=== PATIENT | male | born 1935 | race Caucasian/White ===

== ENCOUNTER 2022-05-24 20:51 | Inpatient (IN) | payer BC, OTHER ==
[2022-05-24] MEDS ORDERED: PIPERACILLIN/TAZOB 3.375 GM 3.375 GM in DEXTROSE 5%-WATER - 50 ML IVPB ONE (21:31)
[2022-05-24] MEDS ORDERED: VANCOMYCIN 1 GM in D5W (PRE-DOCKED) 1,000 MG/250 ML IVPB ONE (21:31)
[2022-05-24 22:33] LABS: BASO % 0.6 % (0-2.0); EOS % 0.5 % (0-4.5); HEMATOCRIT 35.6 % (35.4-49); HEMOGLOBIN 11.5 GM/dL (11.7-16.9); LYMPH % 42.5 % (8-40); MCH 27.9 pg (25.7-33.7); MCHC 32.4 g/dl (32.0-35.9); MEAN CELL VOLUME 86.1 fl (80-96); MEAN PLT VOLUME 7.8 fl (7.5-11.1); NEUT % 46.4 % (42.8-82.8); PLATELET COUNT 343 10^3/uL (134-434); RBC 4.14 M/mm3 (4.00-5.60); RDW 22.8 % (11.9-15.9); WHITE BLOOD COUNT 6.5 K/mm3 (4.0-10.0)
[2022-05-24] MEDS ORDERED: PIPERACILLIN/TAZOB 3.375 GM 3.375 GM/50 ML BAG IVPB ONE (22:40)
[2022-05-24] MEDS ORDERED: VANCOMYCIN/WATER FOR INJ (PEG) 1,000 MG/200 ML BAG IVPB ONE (22:40)
[2022-05-24 22:59] LABS: ALBUMIN 2.9 g/dl (3.4-5.0); BLOOD UREA NITROGEN 24.6 mg/dL (7-18); CALCIUM 8.9 mg/dL (8.5-10.1)
[2022-05-24 23:02] LABS: CREATININE 0.8 mg/dL (0.55-1.3)
[2022-05-24 23:04] LABS: BILIRUBIN,TOTAL 0.2 mg/dL (0.2-1); TOT PROT 6.3 g/dl (6.4-8.2)
[2022-05-24 23:12] LABS: ANISOCYTOSIS 2+; MACROCYTOSIS 0; OVALOCYTE 1+; TARGET CELLS 1+
[2022-05-24] MEDS ORDERED: MIDAZOLAM HCL 2 MG/2 ML SINGLE DOSE VIAL IVPUSH ONE (23:53)
[2022-05-24] MEDS ORDERED: MIDAZOLAM HCL 2 MG/2 ML SINGLE DOSE VIAL ONE (23:56)
[2022-05-25] MEDS ORDERED: ALBUTEROL SO4 HFA INHALER IH PRN (04:57)
[2022-05-25 08:56] LABS: BASO % 0.3 % (0-2.0); HEMATOCRIT 37.6 % (35.4-49); HEMOGLOBIN 11.9 GM/dL (11.7-16.9); LYMPH % 39.8 % (8-40); MCH 27.3 pg (25.7-33.7); MCHC 31.6 g/dl (32.0-35.9); MEAN CELL VOLUME 86.3 fl (80-96); MEAN PLT VOLUME 8.5 fl (7.5-11.1); MONO % 9.5 % (3.8-10.2); NEUT % 49.4 % (42.8-82.8); PLATELET COUNT 374 10^3/uL (134-434); RBC 4.36 M/mm3 (4.00-5.60); RDW 22.5 % (11.9-15.9); WHITE BLOOD COUNT 7.8 K/mm3 (4.0-10.0)
[2022-05-25 09:23] LABS: CALCIUM 9.1 mg/dL (8.5-10.1)
[2022-05-25 09:24] LABS: BLOOD UREA NITROGEN 19.6 mg/dL (7-18)
[2022-05-25 09:27] LABS: CREATININE 0.6 mg/dL (0.55-1.3)
[2022-05-25] MEDS: amLODIPine BESYLATE 5 MG TABLET (FP) PO SCH (09:42)
[2022-05-25] MEDS: ASCORBIC ACID 500 MG TABLET (FP) PO SCH ×2 (09:42→21:20)
[2022-05-25] MEDS: FERROUS SO4 325 MG TABLET (FP) PO SCH (09:42)
[2022-05-25 18:56] LABS: URINE APPEARANCE CLOUDY; URINE BILIRUBIN NEGATIVE (NEGATIVE); URINE COLOR YELLOW; URINE GLUCOSE (UA) NEGATIVE (NEGATIVE); URINE KETONE NEGATIVE (NEGATIVE); URINE LEUK ESTERASE NEGATIVE (NEGATIVE); URINE NITRITE NEGATIVE (NEGATIVE); URINE PROTEIN NEGATIVE (NEGATIVE)
[2022-05-25] MEDS: ACETAMINOPHEN 325 MG TABLET (FP) PO PRN (21:20)
[2022-05-25] MEDS: SENNOSIDES 8.6MG TABLET (FP) PO SCH (21:20)
[2022-05-26] MEDS: CEFAZOLIN 1 GM in DEXTROSE 5%-WATER - 50 ML IVPB SCH ×3 (02:27→18:25)
[2022-05-26] MEDS: FERROUS SO4 325 MG TABLET (FP) PO SCH (10:41)
[2022-05-26] MEDS: ASCORBIC ACID 500 MG TABLET (FP) PO SCH ×2 (10:41→22:07)
[2022-05-26] MEDS: amLODIPine BESYLATE 5 MG TABLET (FP) PO SCH (10:41)
[2022-05-26] MEDS: SENNOSIDES 8.6MG TABLET (FP) PO SCH (22:07)
[2022-05-27] MEDS: CEFAZOLIN 1 GM in DEXTROSE 5%-WATER - 50 ML IVPB SCH ×3 (02:29→17:30)
[2022-05-27] MEDS: ASCORBIC ACID 500 MG TABLET (FP) PO SCH ×2 (09:09→22:02)
[2022-05-27] MEDS: amLODIPine BESYLATE 5 MG TABLET (FP) PO SCH (09:09)
[2022-05-27] MEDS: FERROUS SO4 325 MG TABLET (FP) PO SCH (09:09)
[2022-05-27] MEDS: COLLAGENASE CLOSTRIDIUM HIST. 30 GRAMS TUBE TP SCH (12:00)
[2022-05-27] MEDS ORDERED: ceFAZolin SODIUM 1 GM VIAL ONE (16:54)
[2022-05-27] MEDS: SENNOSIDES 8.6MG TABLET (FP) PO SCH (22:02)
[2022-05-28] MEDS: CEFAZOLIN 1 GM in DEXTROSE 5%-WATER - 50 ML IVPB SCH ×2 (02:06→10:14)
[2022-05-28] MEDS: ASCORBIC ACID 500 MG TABLET (FP) PO SCH ×2 (10:14→21:11)
[2022-05-28] MEDS: amLODIPine BESYLATE 5 MG TABLET (FP) PO SCH (10:15)
[2022-05-28] MEDS: FERROUS SO4 325 MG TABLET (FP) PO SCH (10:15)
[2022-05-28] MEDS: COLLAGENASE CLOSTRIDIUM HIST. 30 GRAMS TUBE TP SCH (15:41)
[2022-05-28] MEDS: DEXTROSE 5%-0.45% SALINE 1,000 ML IV SCH (17:29)
[2022-05-28] MEDS: CEPHALEXIN MONOHYDRATE 500 MG CAPSULE (UD) PO SCH (21:11)
[2022-05-28] MEDS: ACETAMINOPHEN 325 MG TABLET (FP) PO PRN (21:11)
[2022-05-28] MEDS: SENNOSIDES 8.6MG TABLET (FP) PO SCH (21:11)
[2022-05-29] VITALS: BMI 15.6
[2022-05-29] MEDS: ACETAMINOPHEN 325 MG TABLET (FP) PO PRN (08:33)
[2022-05-29] MEDS: ASCORBIC ACID 500 MG TABLET (FP) PO SCH ×2 (09:00→21:09)
[2022-05-29] MEDS: CEPHALEXIN MONOHYDRATE 500 MG CAPSULE (UD) PO SCH ×2 (09:00→21:09)
[2022-05-29] MEDS: amLODIPine BESYLATE 5 MG TABLET (FP) PO SCH (09:00)
[2022-05-29] MEDS: FERROUS SO4 325 MG TABLET (FP) PO SCH (09:00)
[2022-05-29] MEDS: MULTIVITAMINS (DAILY MVI) TABLET (FP) PO SCH (09:01)
[2022-05-29 09:15] LABS: HEMATOCRIT 29.4 % (35.4-49); HEMOGLOBIN 9.7 GM/dL (11.7-16.9); MCH 29.2 pg (25.7-33.7); MCHC 33.1 g/dl (32.0-35.9); MEAN CELL VOLUME 88.2 fl (80-96); PLATELET COUNT 297 10^3/uL (134-434); RBC 3.33 M/mm3 (4.00-5.60); RDW 21.8 % (11.9-15.9); WHITE BLOOD COUNT 6.1 K/mm3 (4.0-10.0)
[2022-05-29 09:36] LABS: CALCIUM 8.4 mg/dL (8.5-10.1)
[2022-05-29 09:37] LABS: ALBUMIN 2.5 g/dl (3.4-5.0); BLOOD UREA NITROGEN 21.2 mg/dL (7-18); MAGNESIUM 2.4 mg/dL (1.8-2.4)
[2022-05-29 09:40] LABS: CREATININE 0.6 mg/dL (0.55-1.3)
[2022-05-29 09:42] LABS: BILIRUBIN,TOTAL 0.5 mg/dL (0.2-1); TOT PROT 5.5 g/dl (6.4-8.2)
[2022-05-29] MEDS: DEXTROSE 5%-0.45% SALINE 1,000 ML IV SCH ×2 (15:33→18:23)
[2022-05-29] MEDS: COLLAGENASE CLOSTRIDIUM HIST. 30 GRAMS TUBE TP SCH (15:33)
[2022-05-29] MEDS: SENNOSIDES 8.6MG TABLET (FP) PO SCH (21:09)
[2022-05-30] MEDS: amLODIPine BESYLATE 5 MG TABLET (FP) PO SCH (09:29)
[2022-05-30] MEDS: ASCORBIC ACID 500 MG TABLET (FP) PO SCH ×2 (09:30→21:22)
[2022-05-30] MEDS: CEPHALEXIN MONOHYDRATE 500 MG CAPSULE (UD) PO SCH ×2 (09:30→21:22)
[2022-05-30] MEDS: COLLAGENASE CLOSTRIDIUM HIST. 30 GRAMS TUBE TP SCH (09:30)
[2022-05-30] MEDS: FERROUS SO4 325 MG TABLET (FP) PO SCH (09:30)
[2022-05-30] MEDS: MULTIVITAMINS (DAILY MVI) TABLET (FP) PO SCH (09:30)
[2022-05-30] MEDS: DEXTROSE 5%-0.45% SALINE 1,000 ML IV SCH ×2 (12:41→18:00)
[2022-05-30] MEDS: SENNOSIDES 8.6MG TABLET (FP) PO SCH (21:22)
[2022-05-31] MEDS: FERROUS SO4 325 MG TABLET (FP) PO SCH (09:18)
[2022-05-31] MEDS: amLODIPine BESYLATE 5 MG TABLET (FP) PO SCH (09:18)
[2022-05-31] MEDS: ASCORBIC ACID 500 MG TABLET (FP) PO SCH ×2 (09:18→21:41)
[2022-05-31] MEDS: CEPHALEXIN MONOHYDRATE 500 MG CAPSULE (UD) PO SCH ×2 (09:18→21:41)
[2022-05-31] MEDS: COLLAGENASE CLOSTRIDIUM HIST. 30 GRAMS TUBE TP SCH (09:18)
[2022-05-31] MEDS: MULTIVITAMINS (DAILY MVI) TABLET (FP) PO SCH (09:18)
[2022-05-31] MEDS: DEXTROSE 5%-0.45% SALINE 1,000 ML IV SCH ×2 (14:07→15:20)
[2022-05-31] MEDS: SENNOSIDES 8.6MG TABLET (FP) PO SCH (21:41)
[2022-06-01] MEDS: ASCORBIC ACID 500 MG TABLET (FP) PO SCH ×2 (10:54→21:53)
[2022-06-01] MEDS: FERROUS SO4 325 MG TABLET (FP) PO SCH (10:54)
[2022-06-01] MEDS: MULTIVITAMINS (DAILY MVI) TABLET (FP) PO SCH (10:54)
[2022-06-01] MEDS: COLLAGENASE CLOSTRIDIUM HIST. 30 GRAMS TUBE TP SCH (10:55)
[2022-06-01] MEDS: amLODIPine BESYLATE 5 MG TABLET (FP) PO SCH (10:55)
[2022-06-01] MEDS: CEPHALEXIN MONOHYDRATE 500 MG CAPSULE (UD) PO SCH ×2 (10:55→21:53)
[2022-06-01 12:07] LABS: CALCIUM 8.2 mg/dL (8.5-10.1)
[2022-06-01 12:08] LABS: ALBUMIN 2.3 g/dl (3.4-5.0)
[2022-06-01 12:10] LABS: CREATININE 0.4 mg/dL (0.55-1.3)
[2022-06-01 12:12] LABS: BILIRUBIN,TOTAL 0.3 mg/dL (0.2-1); TOT PROT 5.5 g/dl (6.4-8.2)
[2022-06-01] MEDS: DEXTROSE 5%-0.45% SALINE 1,000 ML IV SCH ×2 (12:48→18:11)
[2022-06-01] MEDS: AMINO ACIDS/PROTEIN HYDROLYS 30 ML LIQUID.PKT PO SCH (18:11)
[2022-06-01] MEDS: SENNOSIDES 8.6MG TABLET (FP) PO SCH (21:53)
[2022-06-02] MEDS: AMINO ACIDS/PROTEIN HYDROLYS 30 ML LIQUID.PKT PO SCH (08:52)
[2022-06-02] MEDS: CEPHALEXIN MONOHYDRATE 500 MG CAPSULE (UD) PO SCH ×2 (10:24→21:20)
[2022-06-02] MEDS: ASCORBIC ACID 500 MG TABLET (FP) PO SCH ×2 (10:24→21:20)
[2022-06-02] MEDS: amLODIPine BESYLATE 5 MG TABLET (FP) PO SCH (10:24)
[2022-06-02] MEDS: MULTIVITAMINS (DAILY MVI) TABLET (FP) PO SCH (10:24)
[2022-06-02] MEDS: FERROUS SO4 325 MG TABLET (FP) PO SCH (10:24)
[2022-06-02] MEDS: COLLAGENASE CLOSTRIDIUM HIST. 30 GRAMS TUBE TP SCH (10:25)
[2022-06-02 10:42] LABS: BASO % 0.6 % (0-2.0); EOS % 1.4 % (0-4.5); HEMATOCRIT 28.8 % (35.4-49); HEMOGLOBIN 9.4 GM/dL (11.7-16.9); LYMPH % 41.3 % (8-40); MCH 28.5 pg (25.7-33.7); MCHC 32.6 g/dl (32.0-35.9); MEAN CELL VOLUME 87.3 fl (80-96); MEAN PLT VOLUME 8.1 fl (7.5-11.1); MONO % 11.4 % (3.8-10.2); NEUT % 45.3 % (42.8-82.8); PLATELET COUNT 358 10^3/uL (134-434); RDW 21.4 % (11.9-15.9); WHITE BLOOD COUNT 5.7 K/mm3 (4.0-10.0)
[2022-06-02 12:06] LABS: ANISOCYTOSIS 2+; MACROCYTOSIS 0
[2022-06-02] MEDS: SENNOSIDES 8.6MG TABLET (FP) PO SCH (21:20)
[2022-06-03] MEDS: AMINO ACIDS/PROTEIN HYDROLYS 30 ML LIQUID.PKT PO SCH (08:48)
[2022-06-03] MEDS: MULTIVITAMINS (DAILY MVI) TABLET (FP) PO SCH (09:57)
[2022-06-03] MEDS: COLLAGENASE CLOSTRIDIUM HIST. 30 GRAMS TUBE TP SCH (09:57)
[2022-06-03] MEDS: ASCORBIC ACID 500 MG TABLET (FP) PO SCH ×2 (09:57→21:13)
[2022-06-03] MEDS: CEPHALEXIN MONOHYDRATE 500 MG CAPSULE (UD) PO SCH ×2 (09:57→21:13)
[2022-06-03] MEDS: amLODIPine BESYLATE 5 MG TABLET (FP) PO SCH (09:57)
[2022-06-03] MEDS: FERROUS SO4 325 MG TABLET (FP) PO SCH (09:57)
[2022-06-03 21:06] LABS: BASO % 0.8 % (0-2.0); EOS % 0.8 % (0-4.5); HEMATOCRIT 32.4 % (35.4-49); HEMOGLOBIN 10.5 GM/dL (11.7-16.9); LYMPH % 33.1 % (8-40); MCH 28.4 pg (25.7-33.7); MCHC 32.4 g/dl (32.0-35.9); MEAN CELL VOLUME 87.8 fl (80-96); MEAN PLT VOLUME 8.5 fl (7.5-11.1); MONO % 8.4 % (3.8-10.2); NEUT % 56.9 % (42.8-82.8); RBC 3.69 M/mm3 (4.00-5.60); RDW 21.6 % (11.9-15.9); WHITE BLOOD COUNT 8.4 K/mm3 (4.0-10.0)
[2022-06-03] MEDS: SENNOSIDES 8.6MG TABLET (FP) PO SCH (21:13)
[2022-06-03 21:26] LABS: PLATELET COUNT 284 10^3/uL (134-434)
[2022-06-04] MEDS ORDERED: INSULIN (NOVOLOG) ASPART 100 UNITS/ML 10ML VIAL ONE (07:45)
[2022-06-04] MEDS: AMINO ACIDS/PROTEIN HYDROLYS 30 ML LIQUID.PKT PO SCH (08:54)
[2022-06-04] MEDS: FERROUS SO4 325 MG TABLET (FP) PO SCH (09:11)
[2022-06-04] MEDS: CEPHALEXIN MONOHYDRATE 500 MG CAPSULE (UD) PO SCH ×2 (09:11→09:12)
[2022-06-04] MEDS: amLODIPine BESYLATE 5 MG TABLET (FP) PO SCH (09:11)
[2022-06-04] MEDS: ASCORBIC ACID 500 MG TABLET (FP) PO SCH ×2 (09:11→21:14)
[2022-06-04] MEDS: MULTIVITAMINS (DAILY MVI) TABLET (FP) PO SCH (09:12)
[2022-06-04] MEDS: COLLAGENASE CLOSTRIDIUM HIST. 30 GRAMS TUBE TP SCH (14:18)
[2022-06-04] MEDS: ZINC SULFATE 220 MG CAPSULE (FP) PO SCH (14:18)
[2022-06-04] MEDS: SENNOSIDES 8.6MG TABLET (FP) PO SCH (21:14)
[2022-06-05] MEDS: AMINO ACIDS/PROTEIN HYDROLYS 30 ML LIQUID.PKT PO SCH (08:28)
[2022-06-05] MEDS: FERROUS SO4 325 MG TABLET (FP) PO SCH (10:15)
[2022-06-05] MEDS: ASCORBIC ACID 500 MG TABLET (FP) PO SCH ×2 (10:15→21:57)
[2022-06-05] MEDS: amLODIPine BESYLATE 5 MG TABLET (FP) PO SCH (10:15)
[2022-06-05] MEDS: ZINC SULFATE 220 MG CAPSULE (FP) PO SCH (10:15)
[2022-06-05] MEDS: MULTIVITAMINS (DAILY MVI) TABLET (FP) PO SCH (10:15)
[2022-06-05] MEDS: COLLAGENASE CLOSTRIDIUM HIST. 30 GRAMS TUBE TP SCH (14:45)
[2022-06-05] MEDS: SENNOSIDES 8.6MG TABLET (FP) PO SCH (21:57)
[2022-06-06] MEDS: AMINO ACIDS/PROTEIN HYDROLYS 30 ML LIQUID.PKT PO SCH (12:16)
[2022-06-06] MEDS: FERROUS SO4 325 MG TABLET (FP) PO SCH (12:16)
[2022-06-06] MEDS: amLODIPine BESYLATE 5 MG TABLET (FP) PO SCH (12:17)
[2022-06-06] MEDS: ASCORBIC ACID 500 MG TABLET (FP) PO SCH ×2 (12:17→21:36)
[2022-06-06] MEDS: MULTIVITAMINS (DAILY MVI) TABLET (FP) PO SCH (12:17)
[2022-06-06] MEDS: ZINC SULFATE 220 MG CAPSULE (FP) PO SCH (12:17)
[2022-06-06] MEDS: COLLAGENASE CLOSTRIDIUM HIST. 30 GRAMS TUBE TP SCH (12:17)
[2022-06-06] MEDS: SENNOSIDES 8.6MG TABLET (FP) PO SCH (21:35)
[2022-06-07] MEDS: AMINO ACIDS/PROTEIN HYDROLYS 30 ML LIQUID.PKT PO SCH (08:18)
[2022-06-07] MEDS: amLODIPine BESYLATE 5 MG TABLET (FP) PO SCH (11:07)
[2022-06-07] MEDS: FERROUS SO4 325 MG TABLET (FP) PO SCH (11:07)
[2022-06-07] MEDS: ASCORBIC ACID 500 MG TABLET (FP) PO SCH ×2 (11:07→21:54)
[2022-06-07] MEDS: MULTIVITAMINS (DAILY MVI) TABLET (FP) PO SCH (11:07)
[2022-06-07] MEDS: COLLAGENASE CLOSTRIDIUM HIST. 30 GRAMS TUBE TP SCH (11:08)
[2022-06-07] MEDS: ZINC SULFATE 220 MG CAPSULE (FP) PO SCH (11:08)
[2022-06-07] MEDS: SENNOSIDES 8.6MG TABLET (FP) PO SCH (21:54)
[2022-06-08] MEDS: AMINO ACIDS/PROTEIN HYDROLYS 30 ML LIQUID.PKT PO SCH (09:22)
[2022-06-08] MEDS: FERROUS SO4 325 MG TABLET (FP) PO SCH (09:23)
[2022-06-08] MEDS: ASCORBIC ACID 500 MG TABLET (FP) PO SCH ×2 (09:23→21:18)
[2022-06-08] MEDS: ZINC SULFATE 220 MG CAPSULE (FP) PO SCH (09:23)
[2022-06-08] MEDS: MULTIVITAMINS (DAILY MVI) TABLET (FP) PO SCH (09:23)
[2022-06-08] MEDS: COLLAGENASE CLOSTRIDIUM HIST. 30 GRAMS TUBE TP SCH (09:23)
[2022-06-08] MEDS: amLODIPine BESYLATE 5 MG TABLET (FP) PO SCH (09:23)
[2022-06-08] MEDS: SENNOSIDES 8.6MG TABLET (FP) PO SCH (21:18)
[2022-06-09] MEDS: ZINC SULFATE 220 MG CAPSULE (FP) PO SCH (10:31)
[2022-06-09] MEDS: MULTIVITAMINS (DAILY MVI) TABLET (FP) PO SCH (10:31)
[2022-06-09] MEDS: COLLAGENASE CLOSTRIDIUM HIST. 30 GRAMS TUBE TP SCH (10:31)
[2022-06-09] MEDS: ASCORBIC ACID 500 MG TABLET (FP) PO SCH ×2 (10:31→22:19)
[2022-06-09] MEDS: amLODIPine BESYLATE 5 MG TABLET (FP) PO SCH (10:31)
[2022-06-09] MEDS: FERROUS SO4 325 MG TABLET (FP) PO SCH (10:31)
[2022-06-09] MEDS: AMINO ACIDS/PROTEIN HYDROLYS 30 ML LIQUID.PKT PO SCH (10:31)
[2022-06-09] MEDS: SENNOSIDES 8.6MG TABLET (FP) PO SCH (22:18)
[2022-06-10] MEDS: AMINO ACIDS/PROTEIN HYDROLYS 30 ML LIQUID.PKT PO SCH (08:46)
[2022-06-10] MEDS: amLODIPine BESYLATE 5 MG TABLET (FP) PO SCH (10:46)
[2022-06-10] MEDS: ASCORBIC ACID 500 MG TABLET (FP) PO SCH ×2 (10:46→22:03)
[2022-06-10] MEDS: FERROUS SO4 325 MG TABLET (FP) PO SCH (10:47)
[2022-06-10] MEDS: MULTIVITAMINS (DAILY MVI) TABLET (FP) PO SCH (10:47)
[2022-06-10] MEDS: COLLAGENASE CLOSTRIDIUM HIST. 30 GRAMS TUBE TP SCH (10:47)
[2022-06-10] MEDS: ZINC SULFATE 220 MG CAPSULE (FP) PO SCH (10:47)
[2022-06-10 12:04] LABS: HEMATOCRIT 29.2 % (35.4-49); HEMOGLOBIN 9.8 GM/dL (11.7-16.9); MCH 29.6 pg (25.7-33.7); MCHC 33.5 g/dl (32.0-35.9); MEAN CELL VOLUME 88.4 fl (80-96); MEAN PLT VOLUME 8.3 fl (7.5-11.1); PLATELET COUNT 352 10^3/uL (134-434); RDW 21.7 % (11.9-15.9); WHITE BLOOD COUNT 6.1 K/mm3 (4.0-10.0)
[2022-06-10 12:24] LABS: BLOOD UREA NITROGEN 34.8 mg/dL (7-18); CALCIUM 8.5 mg/dL (8.5-10.1)
[2022-06-10 12:25] LABS: ALBUMIN 2.6 g/dl (3.4-5.0)
[2022-06-10 12:28] LABS: CREATININE 0.6 mg/dL (0.55-1.3)
[2022-06-10 12:29] LABS: BILIRUBIN,TOTAL 0.5 mg/dL (0.2-1); TOT PROT 5.6 g/dl (6.4-8.2)
[2022-06-10 14:03] VITALS: RESP 18
[2022-06-10] MEDS: SENNOSIDES 8.6MG TABLET (FP) PO SCH (22:03)
[2022-06-11] MEDS: ZINC SULFATE 220 MG CAPSULE (FP) PO SCH (09:29)
[2022-06-11] MEDS: MULTIVITAMINS (DAILY MVI) TABLET (FP) PO SCH (09:29)
[2022-06-11] MEDS: AMINO ACIDS/PROTEIN HYDROLYS 30 ML LIQUID.PKT PO SCH (09:29)
[2022-06-11] MEDS: ASCORBIC ACID 500 MG TABLET (FP) PO SCH ×2 (09:30→21:25)
[2022-06-11] MEDS: amLODIPine BESYLATE 5 MG TABLET (FP) PO SCH (09:30)
[2022-06-11] MEDS: FERROUS SO4 325 MG TABLET (FP) PO SCH (09:30)
[2022-06-11] MEDS: COLLAGENASE CLOSTRIDIUM HIST. 30 GRAMS TUBE TP SCH (09:31)
[2022-06-11] MEDS: SENNOSIDES 8.6MG TABLET (FP) PO SCH (21:25)
[2022-06-12] MEDS: AMINO ACIDS/PROTEIN HYDROLYS 30 ML LIQUID.PKT PO SCH (08:35)
[2022-06-12] MEDS: FERROUS SO4 325 MG TABLET (FP) PO SCH (09:48)
[2022-06-12] MEDS: ASCORBIC ACID 500 MG TABLET (FP) PO SCH ×2 (09:48→21:14)
[2022-06-12] MEDS: MULTIVITAMINS (DAILY MVI) TABLET (FP) PO SCH (09:48)
[2022-06-12] MEDS: ZINC SULFATE 220 MG CAPSULE (FP) PO SCH (09:48)
[2022-06-12] MEDS: amLODIPine BESYLATE 5 MG TABLET (FP) PO SCH (09:49)
[2022-06-12] MEDS: COLLAGENASE CLOSTRIDIUM HIST. 30 GRAMS TUBE TP SCH (09:49)
[2022-06-12] MEDS: SENNOSIDES 8.6MG TABLET (FP) PO SCH (21:14)
[2022-06-13] MEDS: AMINO ACIDS/PROTEIN HYDROLYS 30 ML LIQUID.PKT PO SCH ×2 (08:52→16:42)
[2022-06-13] MEDS: amLODIPine BESYLATE 5 MG TABLET (FP) PO SCH (10:06)
[2022-06-13] MEDS: FERROUS SO4 325 MG TABLET (FP) PO SCH (10:14)
[2022-06-13] MEDS: ZINC SULFATE 220 MG CAPSULE (FP) PO SCH (10:14)
[2022-06-13] MEDS: ASCORBIC ACID 500 MG TABLET (FP) PO SCH ×2 (10:14→22:07)
[2022-06-13] MEDS: MULTIVITAMINS (DAILY MVI) TABLET (FP) PO SCH (10:14)
[2022-06-13 11:21] LABS: CALCIUM 8.6 mg/dL (8.5-10.1)
[2022-06-13 11:22] LABS: BLOOD UREA NITROGEN 23.5 mg/dL (7-18)
[2022-06-13 11:25] LABS: CREATININE 0.6 mg/dL (0.55-1.3)
[2022-06-13] MEDS: COLLAGENASE CLOSTRIDIUM HIST. 30 GRAMS TUBE TP SCH (15:13)
[2022-06-13] MEDS: SENNOSIDES 8.6MG TABLET (FP) PO SCH (22:07)
[2022-06-14] MEDS: AMINO ACIDS/PROTEIN HYDROLYS 30 ML LIQUID.PKT PO SCH ×2 (08:55→17:05)
[2022-06-14] MEDS: ASCORBIC ACID 500 MG TABLET (FP) PO SCH ×2 (10:10→22:07)
[2022-06-14] MEDS: ZINC SULFATE 220 MG CAPSULE (FP) PO SCH (10:10)
[2022-06-14] MEDS: MULTIVITAMINS (DAILY MVI) TABLET (FP) PO SCH (10:10)
[2022-06-14] MEDS: FERROUS SO4 325 MG TABLET (FP) PO SCH (10:10)
[2022-06-14] MEDS: amLODIPine BESYLATE 5 MG TABLET (FP) PO SCH (10:17)
[2022-06-14] MEDS: COLLAGENASE CLOSTRIDIUM HIST. 30 GRAMS TUBE TP SCH (10:55)
[2022-06-14] MEDS: SENNOSIDES 8.6MG TABLET (FP) PO SCH (22:07)
[2022-06-15] MEDS: AMINO ACIDS/PROTEIN HYDROLYS 30 ML LIQUID.PKT PO SCH ×2 (08:47→17:11)
[2022-06-15] MEDS: amLODIPine BESYLATE 5 MG TABLET (FP) PO SCH ×2 (09:28→09:55)
[2022-06-15] MEDS: ASCORBIC ACID 500 MG TABLET (FP) PO SCH ×2 (09:28→21:15)
[2022-06-15] MEDS: MULTIVITAMINS (DAILY MVI) TABLET (FP) PO SCH (09:28)
[2022-06-15] MEDS: ZINC SULFATE 220 MG CAPSULE (FP) PO SCH (09:28)
[2022-06-15] MEDS: FERROUS SO4 325 MG TABLET (FP) PO SCH (09:28)
[2022-06-15] MEDS: COLLAGENASE CLOSTRIDIUM HIST. 30 GRAMS TUBE TP SCH (09:29)
[2022-06-15] MEDS: SENNOSIDES 8.6MG TABLET (FP) PO SCH (21:15)
[2022-06-16] MEDS: AMINO ACIDS/PROTEIN HYDROLYS 30 ML LIQUID.PKT PO SCH ×2 (08:25→18:01)
[2022-06-16] MEDS: ASCORBIC ACID 500 MG TABLET (FP) PO SCH ×2 (09:36→22:35)
[2022-06-16] MEDS: FERROUS SO4 325 MG TABLET (FP) PO SCH (09:36)
[2022-06-16] MEDS: ZINC SULFATE 220 MG CAPSULE (FP) PO SCH (09:36)
[2022-06-16] MEDS: MULTIVITAMINS (DAILY MVI) TABLET (FP) PO SCH (09:36)
[2022-06-16] MEDS: amLODIPine BESYLATE 5 MG TABLET (FP) PO SCH ×2 (09:36→09:43)
[2022-06-16] MEDS: COLLAGENASE CLOSTRIDIUM HIST. 30 GRAMS TUBE TP SCH (09:43)
[2022-06-16] MEDS: SENNOSIDES 8.6MG TABLET (FP) PO SCH (22:34)
[2022-06-17] MEDS: AMINO ACIDS/PROTEIN HYDROLYS 30 ML LIQUID.PKT PO SCH ×2 (08:24→17:03)
[2022-06-17] MEDS: FERROUS SO4 325 MG TABLET (FP) PO SCH (09:10)
[2022-06-17] MEDS: MULTIVITAMINS (DAILY MVI) TABLET (FP) PO SCH (09:10)
[2022-06-17] MEDS: ZINC SULFATE 220 MG CAPSULE (FP) PO SCH (09:10)
[2022-06-17] MEDS: amLODIPine BESYLATE 5 MG TABLET (FP) PO SCH (09:10)
[2022-06-17] MEDS: ASCORBIC ACID 500 MG TABLET (FP) PO SCH ×2 (09:10→21:55)
[2022-06-17] MEDS: COLLAGENASE CLOSTRIDIUM HIST. 30 GRAMS TUBE TP SCH (09:11)
[2022-06-17] MEDS: SENNOSIDES 8.6MG TABLET (FP) PO SCH (21:55)
[2022-06-18] MEDS: AMINO ACIDS/PROTEIN HYDROLYS 30 ML LIQUID.PKT PO SCH ×2 (08:27→17:09)
[2022-06-18] MEDS: ZINC SULFATE 220 MG CAPSULE (FP) PO SCH (09:39)
[2022-06-18] MEDS: COLLAGENASE CLOSTRIDIUM HIST. 30 GRAMS TUBE TP SCH (09:39)
[2022-06-18] MEDS: ASCORBIC ACID 500 MG TABLET (FP) PO SCH ×2 (09:39→21:50)
[2022-06-18] MEDS: MULTIVITAMINS (DAILY MVI) TABLET (FP) PO SCH (09:39)
[2022-06-18] MEDS: FERROUS SO4 325 MG TABLET (FP) PO SCH (09:39)
[2022-06-18] MEDS: amLODIPine BESYLATE 5 MG TABLET (FP) PO SCH (09:39)
[2022-06-18] MEDS: SENNOSIDES 8.6MG TABLET (FP) PO SCH (21:50)
[2022-06-19] MEDS: AMINO ACIDS/PROTEIN HYDROLYS 30 ML LIQUID.PKT PO SCH ×2 (07:57→17:17)
[2022-06-19] MEDS: MULTIVITAMINS (DAILY MVI) TABLET (FP) PO SCH (09:09)
[2022-06-19] MEDS: amLODIPine BESYLATE 5 MG TABLET (FP) PO SCH (09:09)
[2022-06-19] MEDS: FERROUS SO4 325 MG TABLET (FP) PO SCH (09:09)
[2022-06-19] MEDS: ZINC SULFATE 220 MG CAPSULE (FP) PO SCH (09:09)
[2022-06-19] MEDS: COLLAGENASE CLOSTRIDIUM HIST. 30 GRAMS TUBE TP SCH (09:09)
[2022-06-19] MEDS: ASCORBIC ACID 500 MG TABLET (FP) PO SCH ×2 (09:09→21:43)
[2022-06-19 12:09] LABS: HEMATOCRIT 31.2 % (35.4-49); HEMOGLOBIN 10.2 GM/dL (11.7-16.9); MCH 29.7 pg (25.7-33.7); MCHC 32.6 g/dl (32.0-35.9); MEAN CELL VOLUME 91.1 fl (80-96); MEAN PLT VOLUME 8.5 fl (7.5-11.1); PLATELET COUNT 296 10^3/uL (134-434); RBC 3.43 M/mm3 (4.00-5.60); RDW 22.6 % (11.9-15.9); WHITE BLOOD COUNT 4.9 K/mm3 (4.0-10.0)
[2022-06-19 12:29] LABS: ALBUMIN 2.6 g/dl (3.4-5.0); BLOOD UREA NITROGEN 26.5 mg/dL (7-18)
[2022-06-19 12:31] LABS: CALCIUM 8.5 mg/dL (8.5-10.1)
[2022-06-19 12:32] LABS: CREATININE 0.6 mg/dL (0.55-1.3)
[2022-06-19 12:33] LABS: BILIRUBIN,TOTAL 0.6 mg/dL (0.2-1)
[2022-06-19 12:34] LABS: TOT PROT 5.6 g/dl (6.4-8.2)
[2022-06-19] MEDS: SENNOSIDES 8.6MG TABLET (FP) PO SCH (21:43)
[2022-06-19] MEDS: OLANZapine 2.5 MG TABLET PO SCH (21:43)
[2022-06-20] MEDS: FERROUS SO4 325 MG TABLET (FP) PO SCH (10:12)
[2022-06-20] MEDS: AMINO ACIDS/PROTEIN HYDROLYS 30 ML LIQUID.PKT PO SCH ×2 (10:12→17:55)
[2022-06-20] MEDS: ASCORBIC ACID 500 MG TABLET (FP) PO SCH (10:12)
[2022-06-20] MEDS: amLODIPine BESYLATE 5 MG TABLET (FP) PO SCH (10:12)
[2022-06-20] MEDS: MULTIVITAMINS (DAILY MVI) TABLET (FP) PO SCH (10:12)
[2022-06-20] MEDS: ZINC SULFATE 220 MG CAPSULE (FP) PO SCH (10:12)
[2022-06-20] MEDS: OLANZapine 2.5 MG TABLET PO SCH (10:13)
[2022-06-20] MEDS: COLLAGENASE CLOSTRIDIUM HIST. 30 GRAMS TUBE TP SCH (10:13)
[2022-06-20 11:01] LABS: HEMATOCRIT 30.1 % (35.4-49); HEMOGLOBIN 9.8 GM/dL (11.7-16.9); MCH 29.7 pg (25.7-33.7); MCHC 32.5 g/dl (32.0-35.9); MEAN CELL VOLUME 91.5 fl (80-96); MEAN PLT VOLUME 8.8 fl (7.5-11.1); PLATELET COUNT 281 10^3/uL (134-434); RBC 3.29 M/mm3 (4.00-5.60); RDW 23.2 % (11.9-15.9); WHITE BLOOD COUNT 5.1 K/mm3 (4.0-10.0)
[2022-06-20 11:34] LABS: CALCIUM 8.3 mg/dL (8.5-10.1)
[2022-06-20 11:35] LABS: ALBUMIN 2.6 g/dl (3.4-5.0); BLOOD UREA NITROGEN 30.3 mg/dL (7-18); MAGNESIUM 2.6 mg/dL (1.8-2.4)
[2022-06-20 11:38] LABS: CREATININE 0.6 mg/dL (0.55-1.3)
[2022-06-20 11:39] LABS: TOT PROT 5.5 g/dl (6.4-8.2)
[2022-06-20 11:40] LABS: BILIRUBIN,TOTAL 0.4 mg/dL (0.2-1)
[2022-06-20 14:45] VITALS: BP 118/64; PULSE 93; TEMP 98
== END 2022-06-20 19:02 | DRG 602 ==
LOC: JER 20:51 → JERBED 05-25 01:01 → J6S 05-25 03:12
PROVIDERS: ADMIT Internal Medicine; ATTEND Family Medicine
DX: L03.116 Cellulitis of left lower limb (principal); E43 Unspecified severe protein-calorie malnutrition; N17.9 Acute kidney failure, unspecified; R64 Cachexia; Z68.1 Body mass index [BMI] 19.9 or less, adult; F03.90 Unspecified dementia, unspecified severity, without behavioral disturbance, psychotic disturbance, mood disturbance, and anxiety; L03.115 Cellulitis of right lower limb; F20.9 Schizophrenia, unspecified; L97.529 Non-pressure chronic ulcer of other part of left foot with unspecified severity; R29.6 Repeated falls; I73.9 Peripheral vascular disease, unspecified; I12.9 Hypertensive chronic kidney disease with stage 1 through stage 4 chronic kidney disease, or unspecified chronic kidney disease; N18.9 Chronic kidney disease, unspecified; E86.0 Dehydration; E16.2 Hypoglycemia, unspecified; R00.1 Bradycardia, unspecified; L97.519 Non-pressure chronic ulcer of other part of right foot with unspecified severity; I69.391 Dysphagia following cerebral infarction; R13.10 Dysphagia, unspecified
CPT/HCPCS: 36415; 70450-TC; 71045-TC-FY; 72125-TC; 73590-TC-LT-FY; 73590-TC-RT-FY; 73630-TC-LT; 73630-TC-RT-FY; 80048; 80053; 81003; 83735; 85025; 85027; 87040; 87070; 87086; 87186; 87205; 93005; 93010; 93971; 97116-GP; 97161-GP; 99285-25; C9803-CS; U0003; U0005

== ENCOUNTER 2022-07-21 14:48 | Inpatient (IN) | payer BC, OTHER ==
[2022-07-21 15:09] VITALS: BMI 15.3
[2022-07-21] MEDS ORDERED: SODIUM CHLORIDE 1,000 ML IV STA (17:01)
[2022-07-21 19:10] LABS: BASO % 0.3 % (0-2.0); EOS % 0.1 % (0-4.5); HEMATOCRIT 34.1 % (35.4-49); HEMOGLOBIN 10.6 GM/dL (11.7-16.9); LYMPH % 28.8 % (8-40); MCH 30.2 pg (25.7-33.7); MCHC 31.1 g/dl (32.0-35.9); MEAN CELL VOLUME 97.1 fl (80-96); MEAN PLT VOLUME 9.2 fl (7.5-11.1); MONO % 5.4 % (3.8-10.2); NEUT % 65.4 % (42.8-82.8); PLATELET COUNT 400 10^3/uL (134-434); RBC 3.51 M/mm3 (4.00-5.60)
[2022-07-21 19:24] LABS: CHLORIDE 135 mmol/L (98-107); INR 1.28 (0.83-1.09); PROTHROMBIN TIME (PATIENT) 14.7 SEC (9.7-13.0)
[2022-07-21 19:26] LABS: ALBUMIN 2.2 g/dl (3.4-5.0); BLOOD UREA NITROGEN 51.4 mg/dL (7-18); CALCIUM 8.3 mg/dL (8.5-10.1); CO2 27 mmol/L (21-32); GLUCOSE,RANDOM 92 mg/dL (74-106); MAGNESIUM 2.5 mg/dL (1.8-2.4)
[2022-07-21 19:27] LABS: ACTIVATED PTT 31.3 SECONDS (25.2-36.5)
[2022-07-21 19:29] LABS: CREATININE 1.1 mg/dL (0.55-1.3); PHOSPHOROUS 3.3 mg/dL (2.5-4.9); SGOT/AST 12 U/L (15-37); SGPT/ALT 15 U/L (13-61)
[2022-07-21 19:31] LABS: BILIRUBIN,TOTAL 0.4 mg/dL (0.2-1); TOT PROT 5.7 g/dl (6.4-8.2)
[2022-07-21 19:32] LABS: ALK PHOS 95 U/L (45-117)
[2022-07-21 19:40] LABS: ANION GAP 6 MMOL/L (8-16); SODIUM 168 mmol/L (136-145)
[2022-07-21] MEDS ORDERED: DEXTROSE 5%-NORMAL SALINE 1,000 ML IV SCH (21:45)
[2022-07-22 00:32] LABS: CHLORIDE 135 mmol/L (98-107)
[2022-07-22 00:36] LABS: BLOOD UREA NITROGEN 52.4 mg/dL (7-18); CALCIUM 8.1 mg/dL (8.5-10.1); CO2 25 mmol/L (21-32)
[2022-07-22 00:37] LABS: ALBUMIN 2.2 g/dl (3.4-5.0); GLUCOSE,RANDOM 86 mg/dL (74-106)
[2022-07-22 00:40] LABS: CREATININE 0.8 mg/dL (0.55-1.3); SGOT/AST 18 U/L (15-37); SGPT/ALT 16 U/L (13-61)
[2022-07-22 00:41] LABS: BILIRUBIN,TOTAL 0.4 mg/dL (0.2-1)
[2022-07-22 00:42] LABS: ALK PHOS 102 U/L (45-117)
[2022-07-22 00:49] LABS: ANION GAP 5 MMOL/L (8-16); SODIUM 165 mmol/L (136-145)
[2022-07-22] MEDS ORDERED: DEXTROSE 5%-WATER - 1,000 ML IV SCH ×2 (01:00→13:01)
[2022-07-22 04:59] LABS: EPI CELLS 34 /uL (0-25.1); HYALINE CASTS 9 /uL (0-3.1); URINE APPEARANCE TURBID; URINE BILIRUBIN NEGATIVE (NEGATIVE); URINE COLOR RED; URINE GLUCOSE (UA) NEGATIVE (NEGATIVE); URINE KETONE NEGATIVE (NEGATIVE); URINE LEUK ESTERASE NEGATIVE (NEGATIVE); URINE NITRITE POSITIVE (NEGATIVE); URINE PROTEIN NEGATIVE (NEGATIVE); URINE UROBILINOGEN 0.2 mg/dL (0.2-1.0); URINE WBC 12 /uL (0-25.8)
[2022-07-22 05:00] LABS: URINE RBC 98.6 /uL (0-23.9)
[2022-07-22] MEDS ORDERED: CEFTRIAXONE 1 GM in DEXTROSE 5%-WATER - 100 ML IVPB ONE (06:19)
[2022-07-22] MEDS ORDERED: CEFTRIAXONE 1 GM/50 ML BAG ONE ×2 (06:27→09:11)
[2022-07-22 08:23] LABS: BASO % 0.2 % (0-2.0); EOS % 0.1 % (0-4.5); HEMATOCRIT 35.6 % (35.4-49); HEMOGLOBIN 11.4 GM/dL (11.7-16.9); LYMPH % 13.4 % (8-40); MCH 30.6 pg (25.7-33.7); MCHC 31.9 g/dl (32.0-35.9); MEAN CELL VOLUME 95.9 fl (80-96); MEAN PLT VOLUME 9.5 fl (7.5-11.1); MONO % 2.2 % (3.8-10.2); NEUT % 84.1 % (42.8-82.8); PLATELET COUNT 396 10^3/uL (134-434); RBC 3.71 M/mm3 (4.00-5.60); RDW 19.4 % (11.9-15.9); WHITE BLOOD COUNT 9.4 K/mm3 (4.0-10.0)
[2022-07-22 08:50] LABS: CHLORIDE 134 mmol/L (98-107)
[2022-07-22 08:53] LABS: CALCIUM 8.2 mg/dL (8.5-10.1)
[2022-07-22 08:54] LABS: ALBUMIN 2.3 g/dl (3.4-5.0); BLOOD UREA NITROGEN 51.3 mg/dL (7-18); CO2 25 mmol/L (21-32); GLUCOSE,RANDOM 134 mg/dL (74-106); MAGNESIUM 2.7 mg/dL (1.8-2.4)
[2022-07-22 08:56] LABS: SGPT/ALT 15 U/L (13-61)
[2022-07-22 08:57] LABS: CREATININE 0.8 mg/dL (0.55-1.3); SGOT/AST 18 U/L (15-37)
[2022-07-22 08:58] LABS: BILIRUBIN,TOTAL 0.4 mg/dL (0.2-1); TOT PROT 5.8 g/dl (6.4-8.2)
[2022-07-22 09:00] LABS: ALK PHOS 101 U/L (45-117)
[2022-07-22 09:06] LABS: ANION GAP 6 MMOL/L (8-16); SODIUM 165 mmol/L (136-145)
[2022-07-23 08:59] LABS: CHLORIDE 129 mmol/L (98-107)
[2022-07-23 09:02] LABS: ALBUMIN 2.2 g/dl (3.4-5.0); BLOOD UREA NITROGEN 41.8 mg/dL (7-18); CO2 25 mmol/L (21-32); GLUCOSE,RANDOM 154 mg/dL (74-106)
[2022-07-23 09:05] LABS: CREATININE 0.8 mg/dL (0.55-1.3); SGOT/AST 24 U/L (15-37); SGPT/ALT 15 U/L (13-61)
[2022-07-23 09:07] LABS: BILIRUBIN,TOTAL 0.3 mg/dL (0.2-1); TOT PROT 5.7 g/dl (6.4-8.2)
[2022-07-23 09:08] LABS: ALK PHOS 105 U/L (45-117)
[2022-07-23 09:11] LABS: ANION GAP 7 MMOL/L (8-16); SODIUM 162 mmol/L (136-145)
[2022-07-23] MEDS ORDERED: CEFTRIAXONE 1 GM in DEXTROSE 5%-WATER - 50 ML IVPB SCH (10:00)
[2022-07-23] MEDS ORDERED: DEXTROSE 5%-WATER - 1,000 ML with POTASSIUM CHLORIDE 10 MEQ IV SCH (10:57)
[2022-07-23] MEDS: POTASSIUM CHLORIDE 10 MEQ in DEXTROSE 5%-WATER - 1,000 ML IV SCH ×2 (13:58→21:15)
[2022-07-24 08:59] LABS: CALCIUM 7.7 mg/dL (8.5-10.1)
[2022-07-24 09:00] LABS: BLOOD UREA NITROGEN 32.7 mg/dL (7-18)
[2022-07-24 09:01] LABS: CREATININE 0.7 mg/dL (0.55-1.3)
[2022-07-24 09:02] LABS: TOT PROT 5.1 g/dl (6.4-8.2)
[2022-07-24 09:05] LABS: BILIRUBIN,TOTAL 0.2 mg/dL (0.2-1)
[2022-07-24] MEDS: POTASSIUM CHLORIDE 10 MEQ in DEXTROSE 5%-WATER - 1,000 ML IV SCH (13:52)
[2022-07-25] MEDS: POTASSIUM CHLORIDE 10 MEQ in DEXTROSE 5%-WATER - 1,000 ML IV SCH ×3 (01:01→14:30)
[2022-07-25 08:15] LABS: BASO % 0.3 % (0-2.0); EOS % 0.6 % (0-4.5); HEMATOCRIT 28.8 % (35.4-49); HEMOGLOBIN 9.1 GM/dL (11.7-16.9); LYMPH % 29.5 % (8-40); MCH 29.5 pg (25.7-33.7); MCHC 31.7 g/dl (32.0-35.9); MEAN CELL VOLUME 93.1 fl (80-96); MEAN PLT VOLUME 9.9 fl (7.5-11.1); MONO % 6.8 % (3.8-10.2); NEUT % 62.8 % (42.8-82.8); PLATELET COUNT 269 10^3/uL (134-434); RBC 3.09 M/mm3 (4.00-5.60); RDW 18.6 % (11.9-15.9); WHITE BLOOD COUNT 6.2 K/mm3 (4.0-10.0)
[2022-07-25 08:25] LABS: ALBUMIN 1.9 g/dl (3.4-5.0); BLOOD UREA NITROGEN 20.2 mg/dL (7-18); CALCIUM 7.6 mg/dL (8.5-10.1)
[2022-07-25 08:29] LABS: CREATININE 0.6 mg/dL (0.55-1.3)
[2022-07-25 08:31] LABS: BILIRUBIN,TOTAL 0.3 mg/dL (0.2-1); TOT PROT 4.8 g/dl (6.4-8.2)
[2022-07-25] MEDS: POTASSIUM CHLORIDE TABS 20 MEQ TABLET.ER (FP) PO ONE ×2 (12:28→12:35)
[2022-07-25] MEDS: KCL 10 MEQ IVPB 10 MEQ/100 ML INFUS.BAG IVPB SCH ×2 (12:29→14:19)
[2022-07-26 08:47] LABS: ALBUMIN 1.9 g/dl (3.4-5.0); BLOOD UREA NITROGEN 12.8 mg/dL (7-18); CALCIUM 7.6 mg/dL (8.5-10.1); MAGNESIUM 2.2 mg/dL (1.8-2.4)
[2022-07-26 08:50] LABS: CREATININE 0.5 mg/dL (0.55-1.3)
[2022-07-26 08:52] LABS: BILIRUBIN,TOTAL 0.4 mg/dL (0.2-1); TOT PROT 4.8 g/dl (6.4-8.2)
[2022-07-26] MEDS: POTASSIUM CHLORIDE 10 MEQ in DEXTROSE 5%-WATER - 1,000 ML IV SCH (14:00)
[2022-07-26] MEDS ORDERED: ACETAMINOPHEN 325 MG TABLET (FP) PO PRN (17:28)
[2022-07-27] MEDS: POTASSIUM CHLORIDE 10 MEQ in DEXTROSE 5%-WATER - 1,000 ML IV SCH ×3 (02:38→19:00)
[2022-07-27 08:06] LABS: ALBUMIN 1.8 g/dl (3.4-5.0); BILIRUBIN,TOTAL 0.3 mg/dL (0.2-1); BLOOD UREA NITROGEN 11.6 mg/dL (7-18); CALCIUM 7.6 mg/dL (8.5-10.1); CREATININE 0.6 mg/dL (0.55-1.3); PHOSPHOROUS 2.2 mg/dL (2.5-4.9); TOT PROT 4.6 g/dl (6.4-8.2)
[2022-07-27] MEDS ORDERED: POTASSIUM PHOSPHATE 15 MM in DEXTROSE 5%-WATER - 250 ML IVPB ONE (13:00)
[2022-07-27 13:40] LABS: BASO % 0.1 % (0-2.0); EOS % 0.9 % (0-4.5); HEMOGLOBIN 9.7 GM/dL (11.7-16.9); MCH 29.4 pg (25.7-33.7); MCHC 32.2 g/dl (32.0-35.9); MEAN CELL VOLUME 91.5 fl (80-96); MEAN PLT VOLUME 9.6 fl (7.5-11.1); PLATELET COUNT 253 10^3/uL (134-434); RBC 3.28 M/mm3 (4.00-5.60); RDW 17.8 % (11.9-15.9); WHITE BLOOD COUNT 7.9 K/mm3 (4.0-10.0)
[2022-07-27 13:54] LABS: ALBUMIN 1.8 g/dl (3.4-5.0)
[2022-07-27 13:55] LABS: CALCIUM 7.8 mg/dL (8.5-10.1)
[2022-07-27 13:57] LABS: CREATININE 0.5 mg/dL (0.55-1.3)
[2022-07-27 13:58] LABS: BILIRUBIN,TOTAL 0.3 mg/dL (0.2-1)
[2022-07-27 14:12] LABS: BLOOD UREA NITROGEN 12.2 mg/dL (7-18)
[2022-07-27] MEDS ORDERED: PANTOPRAZOLE SODIUM 40 MG in SODIUM CHLORIDE 100 ML IVPB SCH (18:08)
[2022-07-27] MEDS: PANTOPRAZOLE SODIUM 40 MG VIAL IVPUSH SCH ×2 (18:21→21:31)
[2022-07-28] MEDS: POTASSIUM CHLORIDE 10 MEQ in DEXTROSE 5%-WATER - 1,000 ML IV SCH ×2 (06:06→15:44)
[2022-07-28 08:39] LABS: CALCIUM 7.6 mg/dL (8.5-10.1)
[2022-07-28 08:40] LABS: BLOOD UREA NITROGEN 10.2 mg/dL (7-18)
[2022-07-28 08:42] LABS: CREATININE 0.6 mg/dL (0.55-1.3)
[2022-07-28 08:43] LABS: PHOSPHOROUS 2.6 mg/dL (2.5-4.9)
[2022-07-28 08:44] LABS: BILIRUBIN,TOTAL 0.6 mg/dL (0.2-1); TOT PROT 5.4 g/dl (6.4-8.2)
[2022-07-28] MEDS: PANTOPRAZOLE SODIUM 40 MG VIAL IVPUSH SCH ×2 (10:17→21:51)
[2022-07-29] MEDS: POTASSIUM CHLORIDE 10 MEQ in DEXTROSE 5%-WATER - 1,000 ML IV SCH (07:00)
[2022-07-29 08:12] LABS: CALCIUM 7.6 mg/dL (8.5-10.1)
[2022-07-29 08:13] LABS: ALBUMIN 1.8 g/dl (3.4-5.0); BLOOD UREA NITROGEN 10.7 mg/dL (7-18)
[2022-07-29 08:16] LABS: CREATININE 0.6 mg/dL (0.55-1.3)
[2022-07-29 08:17] LABS: TOT PROT 4.9 g/dl (6.4-8.2)
[2022-07-29 08:18] LABS: BILIRUBIN,TOTAL 0.5 mg/dL (0.2-1)
[2022-07-29] MEDS: PANTOPRAZOLE 40 MG TABLET PO SCH ×2 (09:22→21:17)
[2022-07-30] MEDS ORDERED: ACETAMINOPHEN 325 MG TABLET (FP) PO PRN (06:06)
[2022-07-30] MEDS: PANTOPRAZOLE 40 MG TABLET PO SCH ×2 (09:10→23:06)
[2022-07-31] MEDS: PANTOPRAZOLE 40 MG TABLET PO SCH (11:06)
[2022-07-31 14:19] VITALS: BP 117/54; PULSE 72; RESP 20; TEMP 97.8
== END 2022-07-31 19:20 | disposition hospice, inpatient (51) | DRG 641 ==
LOC: JER 14:48 → JERBED 17:00 → J4W 07-22 16:49 → J7W 07-30 04:05
PROVIDERS: ADMIT Internal Medicine; ATTEND Internal Medicine
DX: R62.7 Adult failure to thrive (principal); E87.0 Hyperosmolality and hypernatremia; N39.0 Urinary tract infection, site not specified; Z68.1 Body mass index [BMI] 19.9 or less, adult; N17.9 Acute kidney failure, unspecified; R64 Cachexia; F03.90 Unspecified dementia, unspecified severity, without behavioral disturbance, psychotic disturbance, mood disturbance, and anxiety; F20.9 Schizophrenia, unspecified; I69.391 Dysphagia following cerebral infarction; R13.19 Other dysphagia; R91.8 Other nonspecific abnormal finding of lung field; E86.0 Dehydration; I12.9 Hypertensive chronic kidney disease with stage 1 through stage 4 chronic kidney disease, or unspecified chronic kidney disease; N18.9 Chronic kidney disease, unspecified; G20 Parkinson's disease; E87.6 Hypokalemia; L89.890 Pressure ulcer of other site, unstageable; L89.150 Pressure ulcer of sacral region, unstageable
CPT/HCPCS: 36415; 71045-TC-FY; 80053; 81003; 82272; 82436; 82962; 83735; 83930; 83935; 84100; 84133; 84300; 85025; 85610; 85730; 87045; 87046; 87186; 87209; 93005; 93010; 99285-25; C9803-CS; U0003; U0005